=== PATIENT | female | born 1975 | race Caucasian/White ===

== ENCOUNTER 2020-05-09 14:09 | Emergency (ER) | payer BC ==
--- NOTE | 2020-05-09 14:27 | TELE ---
HPI Do you have fever,cough or shortness of breath?: Yes (cough) - General Reason For Visit: COVID TESTING Past History - Travel History Traveled outside of the country in the last 30 days: No Close contact w/someone who was outside of country & ill: No Review of Systems - Review of Systems Able to Perform ROS?: Yes Comments:: 05/09/20 16:57 CONSTITUTIONAL: Absent: fever, chills, diaphoresis, generalized weakness, malaise, loss of appetite HEENT: Absent: rhinorrhea, nasal congestion, throat pain, throat swelling, difficulty swallowing, mouth swelling, ear pain, eye pain, visual Changes CARDIOVASCULAR: Absent: chest pain, loss of consciousness, palpitations, irregular heart rate, peripheral edema RESPIRATORY: Present: Cough Absent: shortness of breath, dyspnea with exertion, orthopnea, wheezing, stridor, hemoptysis GASTROINTESTINAL: Absent: abdominal pain, abdominal distension, nausea, vomiting, diarrhea, constipation, melena, hematochezia SKIN: Absent: rash, itching, pallor NEUROLOGIC: Absent: headache, focal weakness or paresthesias, dizziness, unsteady gait, seizure, mental status changes, bladder or bowel incontinence PSYCHIATRIC: Absent: anxiety, depression, suicidal or homicidal ideation, hallucinations. Limited Spanish proficient: No *Physical Exam - Physical Exam 05/09/20 16:58 GENERAL: Well developed, well nourished. Awake and alert. No acute distress. HEENT: Normocephalic, atraumatic. PERRLA, EOMI. NECK: Supple. Full ROM. PULMONARY: No evidence of respiratory distress. EXTREMITIES: No cyanosis. SKIN: Warm and dry. Normal capillary refill. No rashes. No jaundice. NEUROLOGICAL: Alert, awake, appropriate. PSYCHIATRIC: Cooperative. Good eye contact. Appropriate mood and affect. - Medical Decision Making 05/09/20 15:51 Multiple attempts to reach the patient with no response. Video chatted x1 attempt Texted on backline Called on cell phone 05/09/20 16:58 Patient was finally reached. Patient is a 44-year-old female currently being treated for Lyme's disease, who presents to the ER for persistent cough for the past 3 weeks. She states that she got tested approximately 3 weeks ago when her symptoms started and it was negative for Covid. However she states that she is still having a persistent cough and is concerned that her first test may not have picked up Covid. She states that she still has some associated weakness but is unsure if this is due to her Lyme's disease or possible Covid. Denies fevers, chills, nausea and vomiting. A/P: Need for Covid swab On exam patient appears in no acute distress. Given that patient has a cough, will order Covid swab. Patient referred to the [facility]. Isolation precautions given. Discharge Diagnosis at time of Disposition: Cough, Suspected COVID-19 virus infection - Referrals Follow-up Referral(s): Rylie Yeung MD [Primary Care Provider] - - Patient Instructions
== END 2020-05-09 17:00 | disposition home or self-care (01) ==
LOC: JVIRT 14:09
DX: Z11.59 Encounter for screening for other viral diseases (principal)
CPT/HCPCS: C9803; Q3014-GT; U0003